=== PATIENT | male | born 1980 | race Caucasian/White ===

== ENCOUNTER 2019-05-16 19:33 | Emergency (ER) | payer BC ==
[2019-05-16 20:27] LABS: ABS Lymphocytes 1.7 10^3/ul (1.0-4.8); ABS Monocytes 0.3 10^3/ul (0-0.8); ABS Neutrophils 2.8 10^3/ul (1.5-7.7); Hematocrit 52 % (42-52); Lymphocyte % 35.4 %; Mean Corpuscular HGB Conc 35 g/dL (31-36); Mean Corpuscular Hemoglobin 34 pg (27-31); Mean Corpuscular Volume 96 fL (80-94); Mean Platelet Volume 8.4 fL (7.4-10.4); Platelet Count 149 10^3/uL (150-450); Red Blood Count 5.37 10^6 /uL (4.18-5.48); Red Cell Distribution Width 14 % (10-15); White Blood Count 4.9 10^3/uL (3.5-10.8)
--- NOTE | 2019-05-16 20:33 | ED ---
Psychiatric Complaint - HPI Summary HPI Summary: Patient is a 39 y/o M presenting to [facility] accompanied by for complaints of alcohol abuse, depression and SI. Patient reports that the patient has been experiencing SI and depression for the past six years; these Sx have worsened in the past six months. states that the patient becomes upset over "trival " things and has been making statements such as, "I'm afraid that I am going to go to work one day and get shot". Patient works at [employer]. She also claims that the patient has previously stated that he wants to go into the [employer] and freeze to . However, patient reports no past attempts of self- harm and that he has not previously received a MHE. states that the patient has been drinking alcohol daily, and this has worsened in the past 2-3 months. Patient estimates consuming around 12-15 beers daily. PMHx denied. No daily medications, NKDA reported. PSHx of tonsillectomy stated. Patient claims that he smokes tobacco and marijuana, no other substances. FMHx of suicide ( uncle) and alcoholism reported. Home medications and allergies are reviewed. - History Of Current Complaint Chief Complaint: EDMentalHealth Time Seen by Provider: 05/16/19 20:09 Hx Obtained From: Patient Onset/Duration: Lasting Weeks, Still Present, Worse Since Timing: Weeks Character: Depressed Has Suicidal: Reports: Thoughts, With A Plan - Allergies/Home Medications Allergies/Adverse Reactions: Allergies Allergy/AdvReac Type Severity Reaction Status Date / Time No Known Allergies Allergy Verified 05/16/19 19:41 Home Medications: Home Medications Ibuprofen TAB* [Motrin TAB*] 800 mg PO Q8H PRN 02/13/13 [History Confirmed 05/15] PMH/Surg Hx/FS Hx/Imm Hx Endocrine/Hematology History: Denies: Hx Diabetes, Hx Thyroid Disease Cardiovascular History: Denies: Hx Hypertension Respiratory History: Reports: Hx Asthma - no meds Denies: Hx Chronic Obstructive Pulmonary Disease (COPD) GI History: Denies: Hx Ulcer - Surgical History Surgery Procedure, Year, and Place: tonsils out at 16 yoa Infectious Disease History: No Infectious Disease History: Denies: Hx Clostridium Difficile, Hx Hepatitis, Hx Human Immunodeficiency Virus (HIV), Hx of Known/Suspected MRSA, Hx Shingles, Hx Tuberculosis, Hx Known/ Suspected VRE, Hx Known/Suspected VRSA, History Other Infectious Disease, Traveled Outside the [place] in Last 30 Days - Family History Known Family History: Positive: Other - suicide (uncle), alcoholism - Social History Alcohol Use: Daily Alcohol Amount: 12-pack/day Substance Use Type: Reports: Excessive Caffeine, Marijuana Smoking Status (MU): Heavy Every Day Tobacco Smoker - Additional Comments History Additional Comments: No PHMx PSHx of tonsillectomy FMHx of suicide (uncle) and alcoholism He drinks 12-15 beers daily and smokes tobacco and marijuana Review of Systems - ROS Summary Review of Systems Summary: Home Medications Medication Instructions Recorded Confirmed Type Ibuprofen TAB* [Motrin TAB*] 800 mg PO Q8H PRN 02/13/13 05/16/19 History Positive: Other - alcohol abuse Positive: Depressed, Other - SI All Other Systems Reviewed And Are Negative: Yes Physical Exam - Summary Physical Exam Summary: General: Well-developed, Well-nourished male. No acute distress. HEENT: Normocephalic, Atraumatic. Eyes: Conjuctiva normal, PERRL. Oropharynx: Clear, mucous membranes moist, (-) exudates. Neck: Soft, FROM, (-) lymphadenopathy, (-) thyromegaly, (-) JVD. Cardiovascular: Normal sinus rhythm, (-) murmur. Lungs: Clear to auscultation bilaterally (-) wheezes, (-) rales, (-) rhonchi. Abdomen: Soft, non-tender, non-distended, (-) organomegaly, normal bowel sounds. Back: (-) CVA tenderness Extremities: No edema. Skin: Warm, dry, (-) rash. Neuro: Alert and oriented x3, moves all extremities equally. No ataxia. No gait disturbance. No sensory deficit. Normal strength, normal sensation. Psychiatric: Mood normal, affect normal. Triage Information Reviewed: Yes Vital Signs On Initial Exam: Initial Vitals Temp Pulse Resp BP Pulse Ox 98.2 F 99 15 152/95 95 05/16/19 19:37 05/16/19 19:37 05/16/19 19:37 05/16/19 19:37 05/16/19 19:37 Vital Signs Reviewed: Yes Procedures - Sedation Patient Received Moderate/Deep Sedation with Procedure: No Diagnostics - Vital Signs Vital Signs Temp Pulse Resp BP Pulse Ox 05/16/19 19:37 98.2 F 99 15 152/95 95 - Laboratory Lab Results: Lab Results 05/16/19 Range/Units 20:16 WBC 4.9 (3.5-10.8) 10^3/uL RBC 5.37 (4.18-5.48) 10^6 /uL Hgb 18.0 (14.0-18.0) g/dL Hct 52 (42-52) % MCV 96 H (80-94) fL MCH 34 H (27-31) pg MCHC 35 (31-36) g/dL RDW 14 (10-15) % Plt Count 149 L (150-450) 10^3/uL MPV 8.4 (7.4-10.4) fL Neut % (Auto) 56.7 % Lymph % (Auto) 35.4 % [place] % (Auto) 6.2 % Eos % (Auto) 1.0 % Baso % (Auto) 0.7 % Absolute Neuts (auto) 2.8 (1.5-7.7) 10^3/ul Absolute Lymphs (auto) 1.7 (1.0-4.8) 10^3/ul Absolute Monos (auto) 0.3 (0-0.8) 10^3/ul Absolute Eos (auto) 0.0 (0-0.6) 10^3/ul Absolute Basos (auto) 0.0 (0-0.2) 10^3/ul Absolute Nucleated RBC 0.0 10^3/ul Nucleated RBC % 0.0 Result Diagrams: 05/16/19 20:16 05/16/19 20:17 Lab Statement: Any lab studies that have been ordered have been reviewed, and results considered in the medical decision making process. Re-Evaluation - Re-Evaluation First Eval Re-Evaluation Time: 02:30 Comment: Medically cleared for MHE. Course/Dx - Course Course Of Treatment: 39-year-old male presents from home with for acute alcohol intoxication and mental health evaluation. Patient does admit to daily alcohol use of 12-15 beers daily. He states his consumption has definitely increased in the last 2-3 months. concurs with this. He also states that he is had depression and thoughts of suicide off and on for the last 6 years but it is definitely worse in the last 6 months. states he gets very agitated over trivial things. Has talked about going into the [employer] and freezing to . Has irrational fears and paranoia. On physical exam he is obviously intoxicated. Flat affect. On workup blood alcohol is 244. After patient becomes sober he is seen by mental health. Evaluation discussed with psychiatrist and discharged to home recommended with outpatient follow-up. Patient and agree with this plan and they're discharged home. Follow-up sooner for any worsening symptoms. - Differential Dx/Clinical Impression Provider Diagnosis: Substance use disorder - Physician Notifications Discussed Care Of Patient With: Issa Gan Time Discussed With Above Provider: 04:00 Instructed by Provider To: Other - Patient's case was reviewed by Dr. Gan, patient to be discharged to home. Discharge ED - Sign-Out/Discharge Documenting (check all that apply): Patient Departure - discharge - Discharge Plan Condition: Stable Disposition: HOME Referrals: No Primary Care Phys,NOPCP [Primary Care Provider] - - Billing Disposition and Condition Condition: STABLE Disposition: Home - Attestation Statements Document Initiated by Anaya: Yes Documenting Scribe: MANISH GUEVARA Provider For Whom Anaya is Documenting (Include Credential): WALTER RAMÍREZ MD Scribe Attestation: I, blake BARBOSAed for WALTER RAMÍREZ MD on 05/21/19 at 0418. Scribe Documentation Reviewed: Yes Provider Attestation: The documentation as recorded by the MANISH perla accurately reflects the service I personally performed and the decisions made by me, WALTER RAMÍREZ MD Status of Scribe Document: Viewed
[2019-05-16 20:44] LABS: ALT 32 U/L (7-52); AST 27 U/L (13-39); Albumin 5.1 g/dL (3.2-5.2); Albumin/Globulin Ratio 1.9 (1-3); Alkaline Phosphatase 65 U/L (34-104); Anion Gap 9 mmol/L (2-11); BUN/Creatinine Ratio 7.3 (8-20); Blood Urea Nitrogen 7 mg/dL (6-24); CO2 Carbon Dioxide 24 mmol/L (22-32); Calcium 9.4 mg/dL (8.6-10.3); Chloride 106 mmol/L (101-111); EGFR African American 106.6 (>60); EGFR Non-African American 88.1 (>60); Globulin 2.7 g/dL (2-4); Glucose 96 mg/dL (70-100); Potassium 4.1 mmol/L (3.5-5.0); Sodium 139 mmol/L (135-145); Total Protein 7.8 g/dL (6.4-8.9)
[2019-05-16 20:51] LABS: Acetaminophen < 15 mcg/mL; Alcohol 244 mg/dL (<10); Salicylate < 2.50 mg/dL (<30)
[2019-05-16 20:51] LABS: Urine Appearance Clear; Urine Bilirubin Negative (Negative); Urine Blood Negative (Negative); Urine Color Straw; Urine Glucose Negative (Negative); Urine Ketones Negative (Negative); Urine Nitrite Negative (Negative); Urine Protein Negative (Negative); Urine Specific Gravity 1.002 (1.010-1.030); Urine Urobilinogen Negative (Negative)
[2019-05-16 20:54] LABS: Urine Benzodiazepine Screen None Detected (None Detect); Urine Opiates Screen None Detected (None Detect)
[2019-05-16 21:06] LABS: TSH (Thyroid Stimulating Horm) 0.62 mcIU/mL (0.34-5.60)
[2019-05-17 05:19] VITALS: BP 155/100
== END 2019-05-17 05:18 | disposition home or self-care (01) ==
LOC: ED 19:33
DX: F19.90 Other psychoactive substance use, unspecified, uncomplicated (principal); F10.10 Alcohol abuse, uncomplicated; F32.9 Major depressive disorder, single episode, unspecified; F17.210 Nicotine dependence, cigarettes, uncomplicated
CPT/HCPCS: 36415; 80053; 80307; 80320; 80329; 81003; 84443; 85025; 99284; G0480